=== PATIENT | male | born 1990 | race Caucasian/White ===

== ENCOUNTER 2018-12-02 13:05 | Emergency (ER) | payer OTHER ==
[2018-12-02 13:17] VITALS: RESP 18
[2018-12-02 15:56] LABS: Basophils % (A) 1 %; Eosinophils # (A) 0.2 k/uL (0-0.7); Eosinophils % (A) 4 %; HCT 39.8 % (39.0-53.0); HGB 12.8 gm/dL (13.0-17.5); Lymphocytes # (A) 1.6 k/uL (1.0-4.8); Lymphocytes % (A) 26 %; MCH 26.5 pg (25.0-35.0); MCHC 32.2 g/dL (31.0-37.0); MCV 82.2 fL (80.0-100.0); Mean Platelet Volume 7.8; Monocytes # (A) 0.3 k/uL (0-1.0); Monocytes % (A) 5 %; Neutrophils # (A) 3.9 k/uL (1.3-7.7); Neutrophils % (A) 64 %; Platelet Count 183 k/uL (150-450); RBC 4.84 m/uL (4.30-5.90); RDW 13.2 % (11.5-15.5); WBC 6.2 k/uL (3.8-10.6)
--- NOTE | 2018-12-02 15:59 | ED ---
Eye Problem HPI - General Chief complaint: Eye Problems Stated complaint: Disoriented, spotty vision Time Seen by Provider: 12/02/18 14:55 Source: patient, RN notes reviewed, old records reviewed Mode of arrival: ambulatory Limitations: no limitations - History of Present Illness Initial comments: Nav a 28-year-old male presents emergency department today for evaluation with chief complaint of visual disturbances. Intimately for the past 2 weeks. He reports that today he woke up with persistent right-sided heminopsia. Patient reports that he also feels somewhat "disoriented". Patient states it feels that he's been lightheaded as well and taking longer time to process things. He denies any chest pain or shortness of breath or headaches. He states he feels these have a tingling in his sprain. - Related Data Home Medications Medication Instructions Recorded Confirmed No Known Home Medications 12/02/18 12/02/18 Allergies Allergy/AdvReac Type Severity Reaction Status Date / Time No Known Allergies Allergy Verified 12/02/18 15:12 Review of Systems ROS Statement: Those systems with pertinent positive or pertinent negative responses have been documented in the HPI. ROS Other: All systems not noted in ROS Statement are negative. Past Medical History Past Medical History: No Reported History History of Any Multi-Drug Resistant Organisms: None Reported Past Surgical History: No Surgical Hx Reported Past Psychological History: Anxiety, Bipolar, Depression Smoking Status: Current every day smoker Past Alcohol Use History: Occasional Past Drug Use History: Marijuana General Exam - General Exam Comments Initial Comments: Pleasant 20-year-old male. No significant distress. Limitations: no limitations General appearance: alert, in no apparent distress Head exam: Present: atraumatic, normocephalic, normal inspection Eye exam: Present: normal appearance, PERRL, EOMI, other (Eye pressure 9 is R 9 for L eye. No injection. ). Absent: scleral icterus, conjunctival injection, periorbital swelling ENT exam: Present: normal exam, mucous membranes moist Neck exam: Present: normal inspection. Absent: tenderness, meningismus, lymphadenopathy Respiratory exam: Present: normal lung sounds bilaterally. Absent: respiratory distress, wheezes, rales, rhonchi, stridor Cardiovascular Exam: Present: regular rate, normal rhythm, normal heart sounds. Absent: systolic murmur, diastolic murmur, rubs, gallop, clicks GI/Abdominal exam: Present: soft, normal bowel sounds. Absent: distended, tenderness, guarding, rebound, rigid Neurological exam: Present: alert, oriented X3, CN II-XII intact Expanded Patient oriented to: Present: person, place, time Speech: Present: fluid speech Cranial nerves: EOM's Intact: Normal, Facial Sensation: Normal Cerebellar function: Finger to Nose: Normal Upper motor neuron: Pronator Drift: Normal Sensory exam: Upper Extremity Light Touch: Normal, Lower Extremity Light Touch: Normal Motor strength exam: RUE: 5, LUE: 5, RLE: 5, LLE: 5 Eye Response: (4) open spontaneously Motor Response: (6) obeys commands Verbal Response: (5) oriented Ward Total: 15 Course Vital Signs 12/02/18 12/02/18 12/02/18 13:13 17:04 17:10 Temperature 97.8 F 97.9 F Pulse Rate 89 64 Respiratory 18 18 Rate Blood Pressure 119/65 137/83 O2 Sat by Pulse 99 98 Oximetry Medical Decision Making - Lab Data Result diagrams: 12/02/18 15:40 12/02/18 15:40 Lab Results 12/02/18 12/02/18 12/02/18 Range/Units 15:40 15:40 15:40 WBC 6.2 (3.8-10.6) k/uL RBC 4.84 (4.30-5.90) m/uL Hgb 12.8 L (13.0-17.5) gm/dL Hct 39.8 (39.0-53.0) % MCV 82.2 (80.0-100.0) fL MCH 26.5 (25.0-35.0) pg MCHC 32.2 (31.0-37.0) g/dL RDW 13.2 (11.5-15.5) % Plt Count 183 (150-450) k/uL Neutrophils % 64 % Lymphocytes % 26 % Monocytes % 5 % Eosinophils % 4 % Basophils % 1 % Neutrophils # 3.9 (1.3-7.7) k/uL Lymphocytes # 1.6 (1.0-4.8) k/uL Monocytes # 0.3 (0-1.0) k/uL Eosinophils # 0.2 (0-0.7) k/uL Basophils # 0.0 (0-0.2) k/uL PT 10.5 (9.0-12.0) sec INR 1.0 (<1.2) APTT 25.0 (22.0-30.0) sec Sodium 140 (137-145) mmol/L Potassium 3.9 (3.5-5.1) mmol/L Chloride 104 (98-107) mmol/L Carbon Dioxide 28 (22-30) mmol/L Anion Gap 8 mmol/L BUN 10 (9-20) mg/dL Creatinine 0.90 (0.66-1.25) mg/dL Est GFR (CKD-EPI)AfAm >90 (>60 ml/min/1.73 sqM) Est GFR (CKD-EPI)NonAf >90 (>60 ml/min/1.73 sqM) Glucose 87 (74-99) mg/dL Calcium 9.2 (8.4-10.2) mg/dL Total Bilirubin 0.8 (0.2-1.3) mg/dL AST 17 (17-59) U/L ALT 19 L (21-72) U/L Alkaline Phosphatase 54 (38-126) U/L Total Protein 6.6 (6.3-8.2) g/dL Albumin 4.0 (3.5-5.0) g/dL 12/02/18 16:42 EKG performed at 1636 shows sinus rhythm with sinus arrhythmia, is a rightward axis. Ventricular rate of 70 bpm. Vitals 150 ms. QRS duration 88 ms. QT QTc is 3-4/414 ms. No runs of ST elevation or T-wave inversions. - Radiology Data Radiology results: report reviewed Patient is an 8-year-old male presents emergency room today with complaint visual disturbance over the right eye complaints of change peripheral field of approximately 20%. Symptoms started 11 AM today. Patient states this happened FOR A FEW YEARS WITH SIMILAR PERSISTED FOR THIS LONG. THIS TIME PATIENT'S CT OF BRAIN WAS NEGATIVE FOR ANY ACUTE PROCESS INCLUDING MASSES. PATIENT LABWORK AND EKG ARE REVIEWED AND UNREMARKABLE. I DISCUSSED CASE WITH DR. SOLIS RECOMMENDED PATIENT FOLLOW UP OUTPATIENT ONLY HAS OFFICE TO PERFORM A COMPLETE RETINAL EXAM. DISCUSSED THIS PATIENT. ALL QUESTIONS WERE ANSWERED RETURN PARAMETERS WERE DISCUSSED. Disposition Clinical Impression: Visual disturbance Disposition: HOME SELF-CARE Condition: Good Instructions (If sedation given, give patient instructions): Blurred Vision (E D) Additional Instructions: Follow up with ophthalmology and PCP. Please follow up with family doctor if symptoms have not improved over the next two days. Please return to the emergency room if your symptoms increase or worsen or for any other concerns. Is patient prescribed a controlled substance at d/c from ED?: No Referrals: None,Stated [Primary Care Provider] - 1-2 days Nathaniel Reyes MD [STAFF PHYSICIAN] - 1-2 days Time of Disposition: 16:59
[2018-12-02 16:02] LABS: ALT 19 U/L (21-72); AST 17 U/L (17-59); African American GFR (CKD) >90 (>60 ml/min/1.73 sqM); Alkaline Phosphatase 54 U/L (38-126); Anion Gap 8 mmol/L; Blood Urea Nitrogen 10 mg/dL (9-20); Calcium 9.2 mg/dL (8.4-10.2); Carbon Dioxide 28 mmol/L (22-30); Chloride 104 mmol/L (98-107); Glucose 87 mg/dL (74-99); Potassium 3.9 mmol/L (3.5-5.1); Sodium 140 mmol/L (137-145); Total Bilirubin 0.8 mg/dL (0.2-1.3); Total Protein 6.6 g/dL (6.3-8.2)
[2018-12-02 16:04] LABS: Prothrombin Time 10.5 sec (9.0-12.0)
--- NOTE | 2018-12-02 16:10 | CT ---
EXAMINATION TYPE: CT brain wo con DATE OF EXAM: 12/02/2018 COMPARISON: None INDICATION: visual disturbance DLP: 1099.4 mGycm, Automated exposure control for dose reduction was used. CONTRAST: None CT of the brain is performed utilizing 3 mm thick sections through the posterior fossa and 3 mm thick sections through the remaining calvarium. Study is performed within 24 hours of arrival to the hosp [facility]. No abnormal hyperdensity is present to suggest an acute intracranial hemorrhage. No mass lesion is evident. No acute infarcts are evident. Ventricles and sulci are appropriate for the patient age. There is mucosal thickening within anterior ethmoid air cells. Remaining paranasal sinuses and mastoi d air cells are clear. IMPRESSIONS: 1. Normal CT Brain 2. Mucosal thickening within ethmoid air cells.
[2018-12-02] MEDS ORDERED: ONDANSETRON 4 MG/2 ML VIAL IVP STA (16:40)
[2018-12-02 17:05] VITALS: BP 137/83; PULSE 64
[2018-12-02 17:10] VITALS: TEMP 97.9
== END 2018-12-02 17:10 | disposition home or self-care (01) ==
LOC: EC 13:05
DX: H53.9 Unspecified visual disturbance (principal); F17.200 Nicotine dependence, unspecified, uncomplicated; R41.0 Disorientation, unspecified; R42 Dizziness and giddiness; R20.2 Paresthesia of skin
CPT/HCPCS: 36415; 93005; 80053; 85025; 85610; 85730; 70450; 99285; 96374; J2405